=== PATIENT | male | born 1960 | race Caucasian/White ===

== ENCOUNTER 2017-10-12 09:07 | Outpatient (RCR) | payer BC, SELFPAY ==
[2017-10-12] MEDS: Normal Saline Flush 10 ML SYR IVP (09:05)
[2017-10-12 09:33] LABS: Abs Immature Grans 0.18 k/cumm (0.0-0.09); HCT 34.8 % (40.0-50.0); HGB 10.9 g/dL (13.5-17.5); Mean Corp. HGB Concentration 31.3 g/dL (32.0-36.0); Mean Corpuscular Hemoglobin 25.5 pg (27.0-33.0); Mean Corpuscular Volume 81.3 fL (80-95); Mean Platelet Volume 9.5 fL (8.0-11.0); Platelet Count 373 x1000/uL (130-400); RBC 4.28 m/cumm (4.50-6.00); RBC Distribution Width 15.9 % (11.8-14.1); White Blood Cell Count 6.56 k/cumm (4.4-10.8)
[2017-10-12 09:50] LABS: Absolute Eosinophil Count 0.26 k/cumm (0.0-0.7); Absolute Lymphocyte Count 1.25 k/cumm (1.2-3.4); Absolute Monocyte Count 0.59 k/cumm (0.11-0.7)
[2017-10-12 09:51] LABS: Basophilic Stippling Present; Diff Comment Manual Differential; Polychromasia Present; Schistocytes 1+
[2017-10-12 09:52] LABS: Poikilocytes 1+
[2017-10-12 09:59] LABS: ALT 33 U/L (12-78); AST 19 U/L (15-37); Albumin 3.6 g/dL (3.4-5.0); Alkaline Phosphatase 146 U/L (46-116); Anion Gap 5.1 mmol/L (3-11); BUN 15 mg/dL (7-18); Bilirubin, Total 0.2 mg/dL (0.2-1.0); CO2 28.9 mmol/L (21.0-32.0); CREATININE 0.64 mg/dL (0.70-1.30); Chloride 102 mmol/L (98-107); Glucose 98 mg/dL (70-100); Magnesium 1.8 mg/dL (1.8-2.4); Potassium 3.8 mmol/L (3.5-5.1); Sodium 136 mmol/L (136-145); Total Protein 7.2 g/dL (6.4-8.2)
== END 2017-10-22 ==
LOC: INF 09:07
PROVIDERS: PCP Nurse Practitioner Family; Visit Provider Internal Medicine Medical Oncology
DX: C79.10 Secondary malignant neoplasm of unspecified urinary organs (principal); Z45.2 Encounter for adjustment and management of vascular access device
CPT/HCPCS: 36591; 80053; 83735; 85025

== ENCOUNTER 2017-11-09 01:15 | Outpatient (RCR) | payer BC, SELFPAY ==
[2017-10-26] MEDS: Normal Saline Flush 10 ML SYR IVP (08:40)
[2017-10-26 09:19] LABS: HGB 11.1 g/dL (13.5-17.5); Mean Corp. HGB Concentration 31.7 g/dL (32.0-36.0); Mean Corpuscular Hemoglobin 26.3 pg (27.0-33.0); Mean Corpuscular Volume 82.9 fL (80-95); RBC 4.22 m/cumm (4.50-6.00); RBC Distribution Width 18.5 % (11.8-14.1); White Blood Cell Count 7.94 k/cumm (4.4-10.8)
[2017-10-26 09:25] LABS: ALT 29 U/L (12-78); AST 13 U/L (15-37); Albumin 3.7 g/dL (3.4-5.0); Alkaline Phosphatase 164 U/L (46-116); Anion Gap 3.1 mmol/L (3-11); BUN 22 mg/dL (7-18); Bilirubin, Total 0.2 mg/dL (0.2-1.0); CO2 30.9 mmol/L (21.0-32.0); CREATININE 0.74 mg/dL (0.70-1.30); Calcium 8.8 mg/dL (8.5-10.1); Chloride 104 mmol/L (98-107); Glucose 105 mg/dL (70-100); Magnesium 1.8 mg/dL (1.8-2.4); Potassium 3.9 mmol/L (3.5-5.1); Sodium 138 mmol/L (136-145); Total Protein 7.1 g/dL (6.4-8.2)
[2017-10-26 09:39] LABS: Absolute Lymphocyte Count 1.67 k/cumm (1.2-3.4); Absolute Monocyte Count 0.64 k/cumm (0.11-0.7); Absolute Neutrophil Count 5.48 k/cumm (1.2-6.7); Diff Comment Manual Differential
[2017-10-26 09:40] LABS: Anisocytosis 2+; Ovalocytes 2+; Poikilocytes 1+; Polychromasia Present
[2017-10-26 09:41] LABS: Platelet Count 289 x1000/uL (130-400)
[2017-11-09] MEDS: Normal Saline Flush 10 ML SYR IVP (10:05)
[2017-11-09 10:21] LABS: Abs Immature Grans 0.13 k/cumm (0.0-0.09); Absolute Basophil Count 0.04 k/cumm (0.0-0.2); Absolute Eosinophil Count 0.15 k/cumm (0.0-0.7); Absolute Lymphocyte Count 1.53 k/cumm (1.2-3.4); Absolute Monocyte Count 0.49 k/cumm (0.11-0.7); Absolute Neutrophil Count 5.98 k/cumm (1.2-6.7); Basophils % 0.5; Eosinophils % 1.8; HCT 34.2 % (40.0-50.0); HGB 10.9 g/dL (13.5-17.5); Immature Grans % 1.6; Lymphocytes % 18.4; Mean Corp. HGB Concentration 31.9 g/dL (32.0-36.0); Mean Corpuscular Hemoglobin 26.7 pg (27.0-33.0); Mean Corpuscular Volume 83.6 fL (80-95); Mean Platelet Volume 9.4 fL (8.0-11.0); Monocytes % 5.9; Neutrophils % 71.8; Platelet Count 306 x1000/uL (130-400); RBC 4.09 m/cumm (4.50-6.00); RBC Distribution Width 20.8 % (11.8-14.1); White Blood Cell Count 8.32 k/cumm (4.4-10.8)
[2017-11-09 10:47] LABS: Anisocytosis 2+; Diff Comment RBC Morph Reviewed; Poikilocytes 1+; Polychromasia Present
[2017-11-09 11:13] LABS: ALT 37 U/L (12-78); AST 17 U/L (15-37); Albumin 3.7 g/dL (3.4-5.0); Alkaline Phosphatase 155 U/L (46-116); Anion Gap 8.2 mmol/L (3-11); BUN 21 mg/dL (7-18); Bilirubin, Total 0.1 mg/dL (0.2-1.0); CO2 27.8 mmol/L (21.0-32.0); CREATININE 0.76 mg/dL (0.70-1.30); Calcium 8.5 mg/dL (8.5-10.1); Chloride 103 mmol/L (98-107); Glucose 149 mg/dL (70-100); Magnesium 1.8 mg/dL (1.8-2.4); Potassium 3.9 mmol/L (3.5-5.1); Sodium 139 mmol/L (136-145); Total Protein 6.9 g/dL (6.4-8.2)
== END 2017-11-21 23:59 | disposition home or self-care (01) ==
LOC: INF 01:15
PROVIDERS: Internal Medicine Medical Oncology; PCP Nurse Practitioner Family; Visit Provider Internal Medicine
DX: C79.10 Secondary malignant neoplasm of unspecified urinary organs (principal); Z45.2 Encounter for adjustment and management of vascular access device
CPT/HCPCS: 36591; 80053; 83735; 85025

== ENCOUNTER 2018-05-23 09:08 | Outpatient (CLI) | payer BC, SELFPAY ==
[2018-05-23 09:38] LABS: Hemoglobin A1C 5.5 % (4.5-6.2)
[2018-05-23 09:48] LABS: Abs Immature Grans 0.01 k/cumm (0.0-0.09); Absolute Basophil Count 0.02 k/cumm (0.0-0.2); Absolute Lymphocyte Count 1.17 k/cumm (1.2-3.4); Absolute Monocyte Count 0.35 k/cumm (0.11-0.7); Absolute Neutrophil Count 3.34 k/cumm (1.2-6.7); Basophils % 0.4; Eosinophils % 3.9; HCT 42.1 % (40.0-50.0); HGB 14.3 g/dL (13.5-17.5); Immature Grans % 0.2; Mean Corpuscular Hemoglobin 30.7 pg (27.0-33.0); Mean Corpuscular Volume 90.3 fL (80-95); Mean Platelet Volume 10.4 fL (8.0-11.0); Monocytes % 6.9; Neutrophils % 65.6; Platelet Count 263 x1000/uL (130-400); RBC 4.66 m/cumm (4.50-6.00); RBC Distribution Width 13.8 % (11.8-14.1); White Blood Cell Count 5.09 k/cumm (4.4-10.8)
[2018-05-23 10:39] LABS: ALT 37 U/L (12-78); AST 20 U/L (15-37); Albumin 4.3 g/dL (3.4-5.0); Alkaline Phosphatase 95 U/L (46-116); Anion Gap 8.2 mmol/L (3-11); BUN 22 mg/dL (7-18); Bilirubin, Total 0.8 mg/dL (0.2-1.0); CO2 30.8 mmol/L (21.0-32.0); CREATININE 0.77 mg/dL (0.70-1.30); Calcium 9.4 mg/dL (8.5-10.1); Chloride 101 mmol/L (98-107); Cholesterol 205 mg/dL (50-200); Glucose 104 mg/dL (70-100); HDL Cholesterol 64 mg/dL (40-60); LDL CHOLESTEROL 124 mg/dL (<100); Potassium 4.2 mmol/L (3.5-5.1); Sodium 140 mmol/L (136-145); Total Protein 7.6 g/dL (6.4-8.2); Triglyceride 99 mg/dL (30-150)
== END 2018-05-23 09:28 ==
PROVIDERS: PCP Nurse Practitioner Family; Visit Provider Internal Medicine
DX: C79.10 Secondary malignant neoplasm of unspecified urinary organs (principal)
CPT/HCPCS: 36415; 80053; 80061; 83721; 83036; 85025

== ENCOUNTER 2018-05-30 00:59 | Outpatient (CLI) | payer BC, SELFPAY ==
[2018-05-30] MEDS: Breeza Beverage 473 ML BTL PO ×2 (07:02→07:04)
[2018-05-30] MEDS: Omnipaque 350 MG/ML 50 ML BTL PO (07:03)
--- NOTE | 2018-05-30 08:35 | DI.CT_ITS ---
SYMPTOM/DIAGNOSIS: NEW LOW BACK PAIN, RESTAGING EXAM, H/O METASTATIC UROTHELIAL CA CHEST/ABDOMEN AND PELVIC CT: Comparison CT scan is 05/04/17. ABDOMEN AND PELVIS: The liver is normal in size. There is a stable, 0.6 cm. hypodense, non enhancing lesion in the left lobe of the liver. No suspicious hepatic masses are seen. The portal, superior mesenteric and splenic veins are patent. The gallbladder is negative. There is no biliary ductal dilatation. The pancreas is unremarkable. There are granulomas again seen in the spleen which is otherwise unremarkable. The adrenal glands are stable. The kidneys show normal and symmetric enhancement. No suspicious solid renal mass or obstruction is identified. The patient is status post cystectomy. There is an ileal conduit in the right abdomen which is unremarkable. There is atherosclerosis of the abdominal aorta but no aneurysmal dilatation is seen. No significant abdominal or pelvic adenopathy, ascites or pneumoperitoneum is present. There is diverticulosis of the colon but no evidence of acute diverticulitis. No evidence of bowel obstruction or a bowel inflammatory process is seen. There is a normal appendix present. No evidence of recurrent disease is seen in the surgical bed. Degenerative changes are seen in the spine. No aggressive osseous lesions are identified. IMPRESSION: 1. No evidence of local recurrence at the urinary bladder surgical bed. 2. Stable hepatic hypodensity. CHEST: The thoracic aorta is of normal caliber. Heart size is within normal limits. No significant pericardial effusion is seen. No significant thoracic adenopathy is present. No pleural effusion or pneumothorax is identified. The lungs are clear. The tracheobronchial tree is unremarkable. Degenerative changes are seen in the spine. No aggressive osseous lesions are present. IMPRESSION: No evidence of thoracic metastatic disease.
[2018-05-30] MEDS: Omnipaque 350 MG/ML 100 ML BTL IJ (08:36)
== END 2018-05-30 01:19 ==
PROVIDERS: PCP Nurse Practitioner Family; Visit Provider Internal Medicine
DX: M54.5 Low back pain (principal); C79.10 Secondary malignant neoplasm of unspecified urinary organs; K76.9 Liver disease, unspecified
CPT/HCPCS: 74177; 71260; J3490; Q9967

== ENCOUNTER 2018-06-03 00:25 | Outpatient (CLI) | payer BC, SELFPAY ==
[2018-06-03] MEDS: Gadoterate meglumine 20 ML VIAL IVP (09:55)
--- NOTE | 2018-06-03 10:09 | DI.MRI_ITS ---
SYMPTOM/DIAGNOSIS: NEW LOW BACK PAIN, RESTAGING EXAM, H/O METS, UROTHELIAL CARCINOMA LUMBOSACRAL SPINE MRI: MRI examination of the lumbosacral spine was performed according to the usual protocol with additional pre and post contrast fat sat T 1 weighted axial and sagittal images. No significant bony signal abnormality is seen. An incidental small hemangioma or fatty rest is noted in the T 11 vertebral body. No enhancing lesion identified in the spine. Intervertebral discs appear intact throughout. No central canal spinal canal or neural foraminal stenosis. Conus medullaris appears intact. CONCLUSION: Negative lumbosacral spine MRI including post contrast examination.
== END 2018-06-03 00:45 ==
PROVIDERS: PCP Nurse Practitioner Family; Visit Provider Internal Medicine
DX: M54.5 Low back pain (principal); C67.9 Malignant neoplasm of bladder, unspecified; Z12.89 Encounter for screening for malignant neoplasm of other sites
CPT/HCPCS: 72158

== ENCOUNTER 2018-07-29 10:17 | Outpatient (REF) | payer BC, SELFPAY ==
[2018-07-29 11:51] LABS: Bilirubin Negative (Negative); Blood Moderate (Negative); Clarity Cloudy; Glucose Negative (Negative); Ketones Negative (Negative); Leukocyte Esterase Trace (Negative); Nitrite Positive (Negative); Specific Gravity 1.025 (1.005-1.025); Urobilinogen 0.2 EU/dL (Up TO 0.2)
[2018-07-29 12:21] LABS: Bacteria Moderate HPF (Negative); C & S Indicated? C&S Done As Ordered; Crystals Few Triple Phos HPF (Negative); Epithelial Cells Negative HPF (Negative); Mucus Moderate (Negative); WBC >50 HPF (0-5)
== END 2018-07-29 10:37 ==
LOC: LBN 10:17
PROVIDERS: PCP Nurse Practitioner Family; Visit Provider Nurse Practitioner Family
DX: M54.9 Dorsalgia, unspecified (principal)
CPT/HCPCS: 87077; 81003; 81015; 87086; 87186

== ENCOUNTER 2018-09-08 12:21 | Inpatient (IN) | payer BC, SELFPAY ==
[2018-09-08] VITALS (7 sets, daily range): BP systolic 107–143; BP diastolic 67–92; PULSE 79–93; RESP 17–18; TEMP 36.6–38.1; O2SAT 95–97
[2018-09-08] MEDS: fentaNYL 100 MCG/2 ML VIAL 50 MCG IVP ×3 (13:05→22:42)
[2018-09-08] MEDS: Normal Saline Flush 10 ML SYR ×2 (13:07→15:54)
--- NOTE | 2018-09-08 15:49 | HPE_ITS ---
Date of service: 09/08/18 Time of Service: 15:50 Assessment and Plan (1) Metastatic urothelial carcinoma: Current visit: No Status: Inactive Admitted for pain management due to intractable pain at home. Currently with fentanyl patch 200 mcg, IV fentanyl 50 mcg every 2 hours. Pain appears to be under better control at this time. Increase fentanyl patch by 50 mcg increments [id number] until pain is controlled. Palliative care has been consulted to assist with pain control. He is a palliative care patient. Consider adding dexamethasone if he reaches a dose of Fentanyl 400 mcg TD without pain control. Also add scheduled toradol, renal function is normal. Monitor BMP. (2) Cancer related pain: Current visit: No Status: Chronic As above. (3) Nausea: Current visit: No Status: Acute Nausea and vomiting likely related to uncontrolled pain. Denies nausea at present. IV Zofran as needed. (4) Constipation due to opioid therapy: Current visit: No Status: Chronic Continue home bowel regimen. PRN options available. Monitor and adjust as needed. (5) Palliative care patient: Current visit: No Status: Chronic Dr. Lobo has been consulted, she plans to see the patient this evening to assist with pain control. (6) Essential hypertension: Current visit: No Status: Chronic Continue to monitor blood pressure in the setting of increasing pain medication, home dose of losartan ordered, BMP pending. (7) Hyponatremia: Current visit: Yes Status: Acute His sodium is low at 130, chloride is also low. Initiate IV fluids with NS. Reassess sodium in the morning. (8) DVT prophylaxis: Current visit: Yes Status: Acute Subcutaneous Lovenox. Assess renal function. (9) Discharge planning issues: Current visit: Yes Status: Acute He states that he is a DNR/DNI. He is hoping to get his pain under control so he can resume radiation and immunotherapy. This case was discussed with Dr. Rodríguez who is in agreement. History of Present Illness Chief Complaint: Intractable pain Narrative: Shar Randall is a very pleasant 57-year-old man with a past medical history significant for metastatic urot helial carcinoma status post cystoprostatectomy in 07/2017, currently with mets to his spine. He is a former smoker, he also has a history of hypertension and hyperlipidemia who presents as [facility] floor today at the request of his palliative care provider due to intractable pain. He has had increasing low back and abdominal pain as well as several episodes of nausea and vomiting. He was recently started on a fentanyl patch, starting at 12 mcg, which has been increased to 200 mcg. He remained in severe pain. At this time, he is looking forward to continuing radiation and beginning immunotherapy. He is admitted to the [facility] for pain control. Palliative care has been consulted, he will be seen by Dr. Lobo this afternoon to assist with pain management. Oncology recommends adding dexamethasone, his daughter has concerns about it affecting his immunotherapy initiation, this will be discussed with Dr. Lobo. At the time of this visit, he had received Fentanyl 50 mcg IV with good effect, his pain improved from an 8-9 to a 3/10. The pain is in his low back and around his abdomen. He denies nausea, he was able to eat a small amount of food, his w bonny states he has not eaten for the last couple of days. He reports feeling very tired, he has not slept well at home due to pain. He has been sleeping in his recliner. He denies chest pain/pressure, palpitations, shortness of breath, coughing or wheezing. He endorses constipation, it has been 2 days since his last bowel movement, he does take a bowel regimen at home. He offers no other complaints. He is relieved that his pain is under better control. His , Latrice, and daughter, Iman, are present. We discussed CODE STATUS and he would like to be a DNR/DNI. Review of Systems Review of Systems All systems reviewed & are unremarkable except as noted in HPI and below PFSH Medical History Cancer related pain (Chronic) Constipation due to opioid therapy (Chronic) Essential hypertension (Chronic) Hyperlipidemia (Chronic) Metastatic urothelial carcinoma (Inactive ~04/2017) Nausea (Acute) Palliative care patient (Chronic) Surgical History History of bladder surgery (Inactive 05/11/17) S/P ORIF (open reduction internal fixation) fracture (Inactive ~1972) S/P radical cystoprostatectomy (Inactive 08/03/17) S/P vasectomy (Inactive ~1990) Family History Mother Essential hypertension Father Essential hypertension Type 2 diabetes mellitus Prostate cancer Brother Essential hypertension Alcohol abuse Heart disease Brother Substance abuse Essential hypertension Depression Son No problems noted. Daughter No problems noted. Daughter No problems noted. Maternal Grandfather Metastatic bone cancer Maternal Grandmother Alcohol abuse Paternal Grandfather Bladder cancer Paternal Grandmother Asthma Social History Smoking/Tobacco Use Status: Former Tobacco Use Tobacco: How many years used: 28 Alcohol Intake: current Alcohol Intake frequency: 0-2 drinks per day Drug use: Never Substance use type: former substance user Caregiver/Support person: No Household members: spouse Housing: house Number of Children: 3 number of grandchildren: 6 Pets and animals: Yes Pets and animals: dog(s) Sexually active: No (not since cancer surgery) Do you think of yourself as: straight/heterosexual Current gender identity: male What is your relationship status?: How often do you talk on the phone with friends or family?: three or more times per week How often do you get together with friends or relatives?: three or more times per week How often do you attend quaker or jainism services?: 1-3 times per year Do you belong to any clubs or organized social groups?: yes Panel score (0-1 are the most socially isolated patients): 3 What type of physical activity do you participate in: walking and other Duration: > 90 minutes/day Frequency: daily Mcai/Christian: Caodaism Special maci needs: No Seatbelt use: always Drive intox or ride w/intox furniture delivery driver: No Fire extinguisher in home: Yes Do you feel safe at home: Yes Do you feel safe in your relationship?: Yes Additional Social history: self-employed; applying for disability; has life insurance to cover his when he dies; worried about making enough money to support them up until his ; loving, caring, connected family celebrating his 35 anniversary this summer ( in April, but republican this summer) Meds Home Medications Medication Instructions Recorded Confirmed Type multivitamin [Daily Multi-Vitamin] 1 ea PO DAILY tab-cap 04/10/14 09/08/18 History Shower Stool Dme 1 #1 unit 05/17/17 07/22/18 Clinic losartan 50 mg tablet 50 mg PO DAILY tab-cap 09/02/18 09/08/18 History ondansetron 4 mg disintegrating 4 mg PO TID-QID PRN #30 tab 09/02/18 09/08/18 Rx tablet polyethylene glycol 3350 17 17 gm PO BID #510 gm 09/02/18 09/08/18 Rx gram/dose oral powder sennosides 8.6 mg tablet 8.6 mg PO BID PRN #90 tab 09/02/18 09/08/18 Rx fentanyl 100 mcg/hr transdermal 2 patch TD Q72H #10 each MDD 300 09/05/18 09/08/18 Rx patch mcg fentanyl 25 mcg/hr transdermal 1 patch TD Q72H #10 each MDD 300 09/05/18 09/05/18 Rx patch mcg dexamethasone mg 09/08/18 History oxycodone 5 mg tablet 5 mg PO Q4H PRN PRN #30 tab MDD 20 09/08/18 09/08/18 Rx mg Allergies Allergy/AdvReac Type Severity Reaction Status Date / Time lisinopril AdvReac Unknown COUGH Unverified 07/22/18 10:13 Exam Narrative Exam Narrative: General:57 year old man, laying in bed, with head of bed elevated, eyes closed, appears comfortable. In NAD. Answers questions briefly. and daughter present. HEENT: Normocephalic, atraumatic, occasionally opens eyes, mucous membranes moist. Neck: Supple, no JVD. Cardiovascular: Heart has regular rate and rhythm, no murmur appreciated. Respiratory: Respirations even and unlabored, lung sounds clear to auscultation bilaterally on lateral and anterior exam. GI: Normoactive bowel sounds x4 quadrants, surgical scar below umbilicus. Ileal conduit collecting clear yellow urine. Extremities: Well-perfused, trace edema to bilateral lower extremities, nonpitting, pedal pulses palpable. Back: Not moved to examine back due to pain. Results Labs : 09/09/18 07:35 09/09/18 07:35 Last Vital Signs Temp 38.1 C H 09/08/18 15:47 Pulse 89 09/08/18 15:47 Resp 17 09/08/18 15:47 BP 107/71 09/08/18 15:47 Pulse Ox 96 09/08/18 15:47
[2018-09-08] MEDS: Acetaminophen 325 MG TAB PO (15:52)
[2018-09-08 16:19] LABS: Abs Immature Grans 0.03 k/cumm (0.0-0.09); Absolute Lymphocyte Count 0.85 k/cumm (1.2-3.4); Absolute Monocyte Count 1.17 k/cumm (0.11-0.7); Basophils % 0.2; Eosinophils % 0.2; HCT 35.2 % (40.0-50.0); HGB 11.4 g/dL (13.5-17.5); Immature Grans % 0.2; Lymphocytes % 6.7; Mean Corp. HGB Concentration 32.4 g/dL (32.0-36.0); Mean Corpuscular Hemoglobin 29.9 pg (27.0-33.0); Mean Corpuscular Volume 92.4 fL (80-95); Mean Platelet Volume 9.4 fL (8.0-11.0); Monocytes % 9.2; Neutrophils % 83.5; Platelet Count 381 x1000/uL (130-400); RBC 3.81 m/cumm (4.50-6.00); RBC Distribution Width 12.9 % (11.8-14.1)
[2018-09-08 16:41] LABS: ALT 33 U/L (12-78); AST 13 U/L (15-37); Albumin 3.3 g/dL (3.4-5.0); Alkaline Phosphatase 116 U/L (46-116); Anion Gap 9.6 mmol/L (3-11); BUN 24 mg/dL (7-18); Bilirubin, Total 0.7 mg/dL (0.2-1.0); CO2 27.4 mmol/L (21.0-32.0); CREATININE 0.77 mg/dL (0.70-1.30); Calcium 9.9 mg/dL (8.5-10.1); Chloride 93 mmol/L (98-107); Glucose 104 mg/dL (70-100); Magnesium 2.1 mg/dL (1.8-2.4); Potassium 4.8 mmol/L (3.5-5.1); Sodium 130 mmol/L (136-145); Total Protein 7.9 g/dL (6.4-8.2)
[2018-09-08 16:45] LABS: Absolute Basophil Count 0.03 k/cumm (0.0-0.2); Absolute Eosinophil Count 0.03 k/cumm (0.0-0.7)
[2018-09-08] MEDS: fentaNYL 50 MCG PATCH TD (17:38)
[2018-09-08] MEDS: Enoxaparin 40 MG/0.4 ML SYR SC (17:39)
[2018-09-08] MEDS: Normal Saline 1,000 ML 100 ML IV (17:40)
[2018-09-08] MEDS: Lidocaine 5% Patch 1 PATCH TP (18:38)
[2018-09-08] MEDS: Ketorolac 30 MG/ML VIAL IVP ×2 (18:39→23:28)
[2018-09-08] MEDS: Senna TAB 1 TAB PO (20:37)
[2018-09-08] MEDS: Polyethylene Glycol 3350 17 GM PACKET PO (20:37)
[2018-09-08] MEDS: Normal Saline Flush 10 ML SYR IVP (23:27)
[2018-09-09] MEDS: Normal Saline 1,000 ML 100 ML IV (03:02)
[2018-09-09] MEDS: LIDOCAINE Patch Removal 1 EACH TP (06:13)
[2018-09-09] MEDS: Normal Saline Flush 10 ML SYR IVP ×3 (06:20→12:36)
[2018-09-09] MEDS: Ketorolac 30 MG/ML VIAL IVP ×2 (06:21→12:37)
[2018-09-09 07:35] VITALS: BP 115/71; PULSE 83; RESP 16; TEMP 36.9; O2SAT 93
[2018-09-09] MEDS: Acetaminophen 325 MG TAB PO (07:43)
[2018-09-09] MEDS: Multivitamin TAB 1 TAB PO (07:44)
[2018-09-09] MEDS: Senna TAB 1 TAB PO (07:44)
[2018-09-09] MEDS: Losartan 50 MG TAB PO (07:44)
[2018-09-09] MEDS: Polyethylene Glycol 3350 17 GM PACKET PO (07:44)
[2018-09-09 07:50] LABS: Abs Immature Grans 0.03 k/cumm (0.0-0.09); Absolute Basophil Count 0.01 k/cumm (0.0-0.2); Absolute Eosinophil Count 0.02 k/cumm (0.0-0.7); Absolute Lymphocyte Count 0.32 k/cumm (1.2-3.4); Absolute Monocyte Count 1.18 k/cumm (0.11-0.7); Absolute Neutrophil Count 10.74 k/cumm (1.2-6.7); Basophils % 0.1; Eosinophils % 0.2; HCT 31.6 % (40.0-50.0); Immature Grans % 0.2; Lymphocytes % 2.6; Mean Corp. HGB Concentration 31.6 g/dL (32.0-36.0); Mean Corpuscular Hemoglobin 29.2 pg (27.0-33.0); Mean Corpuscular Volume 92.4 fL (80-95); Mean Platelet Volume 9.3 fL (8.0-11.0); Monocytes % 9.6; Neutrophils % 87.3; Platelet Count 392 x1000/uL (130-400); RBC 3.42 m/cumm (4.50-6.00); RBC Distribution Width 12.9 % (11.8-14.1)
[2018-09-09 08:03] LABS: Anion Gap 8.9 mmol/L (3-11); BUN 32 mg/dL (7-18); CO2 29.1 mmol/L (21.0-32.0); CREATININE 0.78 mg/dL (0.70-1.30); Calcium 9.9 mg/dL (8.5-10.1); Chloride 96 mmol/L (98-107); Glucose 117 mg/dL (70-100); Magnesium 2.5 mg/dL (1.8-2.4); Potassium 5.1 mmol/L (3.5-5.1); Sodium 134 mmol/L (136-145)
--- NOTE | 2018-09-09 11:44 | W.PM.DS.N ---
Date of service: 09/09/18 Time of Service: 11:44 DS: Diagnosis Discharge Diagnosis (1) Metastatic urothelial carcinoma: Status: Inactive (2) Cancer related pain: Status: Chronic (3) Nausea: Status: Acute (4) Constipation due to opioid therapy: Status: Chronic (5) Palliative care patient: Status: Chronic (6) Essential hypertension: Status: Chronic (7) Hyponatremia: Status: Acute Discharge Plan Disposition Patient Disposition: HOME Condition: Improving Discharge Details Reason For Visit: METASTATIC UROTHELIAL CARCINOMA, UNCONTROLLED PAIN Admit Date/Time: 09/08/18 12:21 Admit Provider: Lyly Rodríguez Attending Provider: Lyly Rodríguez Hospital Course Hospital Course: Shra Randall is a very pleasant 57-year-old man with a past medical history significant for metastatic urothelial carcinoma status post cystoprostatectomy in 07/2017, currently with metastasis to his spine. He is a former smoker, he also has a history of hypertension and hyperlipidemia who presented yesterday as a direct admission to the [facility] at the request of his palliative care provider, Dr. Lobo, due to intractable pain. He had several days of increasing low back and abdominal pain as well as episodes of nausea and vomiting prior to his presentation. He was recently started on a fentanyl patch. He was initiated at 12 mcg q72 hours and increased to 200 mcg without relieving his pain. He reported his pain at an 8-9/10 upon admission to the floor. He received IV fentanyl which reduced his pain to 3/10. Palliative care was consulted for assistance with pain management. Dr. Lobo saw him and made recommendations including increasing his fentanyl patch to 250 mcg q72 hours. She recommended increasing the patch by 50 mcg increments every 12 hours until his pain was tolerable. She reported that oncology had recommended dexamethasone 8mg PO daily x5 days, however, his daughter Iman, also an [facility] pharmacist, did some research and was concerned that it could potentially affect his immunotherapy and asked that we reserve the dexamethasone and use it only if other measures do not relieve his pain. Her primary goal was for his pain to be well managed. His fentanyl patch was increased to 250 mcg and he was given scheduled Toradol q6h. By the following morning his pain was 3-4/10 and tolerable. He was able to get out of bed and walk to the bathroom. His reported that he had not been eating well for at least 2 days prior to his admission. With his pain and nausea under control, he was able to eat and drink. He reported sleeping well. Dr. Lobo came in to see Mr. Randall on the morning of his discharge. He was eager to make is afternoon radiation appointment. A plan was developed for pain management after discharge home. He will be discharged with 250 mcg fentanyl patch, he is advised that he can increase his patch by 50 mcg increments q12 hours if his pain is not well controlled. He will have a new prescription for dilaudid for breakthrough pain. He will be advised to take scheduled Ibuprofen. He was started on lidoderm patch, this will be continued at discharge. He should continue Zofran for nausea. He will have a new prescription for omeprazole for GI protection. Of note, he has had constipation. He had a large bowel movement while he was hospitalized. He is advised to continue to maintain a bowel regimen at home in the setting of taking opiates for pain. He also received IV normal saline overnight due to hyponatremia, likely in the setting of poor PO intake. His sodium improved to 134 at the time of his discharge. His creatinine remained stable at 0.78. His ileocondiut continues to put out clear yellow urine. He has an outstanding, loving family that will support him and care for him at home. He is discharged home today. He will go from the hospital to [facility] for radiation treatment. He will follow up with oncology as scheduled. He will follow up with Dr. Lobo next week as scheduled. Home Meds and New Rx's Prescriptions: New lidocaine [Lidoderm] 5 % Adhesive Patch,Medicated 1 patch topical Q24H Qty: 15 RF: 0 lorazepam 0.5 mg Tablet 0.5 mg PO Q4H PRN PRNQty: 18 RF: 0 magnesium hydroxide [Milk of Magnesia] 400 mg/5 mL Suspension 30 ml PO HS Qty: 0 RF: 0 ondansetron HCl 4 mg tablet 4 mg PO Q8H PRN (Reason: nausea and vomiting) Qty: 20 RF: 0 ibuprofen 800 mg tablet 800 mg PO Q8H Qty: 30 RF: 0 fentanyl 50 mcg/hr patch 72 hour 1 patch TD Q72H Qty: 5 RF: 0 hydromorphone 2 mg tablet 2 mg PO Q4H PRN (Reason: pain) Qty: 18 RF: 0 omeprazole 40 mg capsule,delayed release(DR/EC) 40 mg PO DAILY Qty: 30 RF: 0 Continued losartan 50 mg tablet 50 mg PO DAILY RF: 0 sennosides [senna] 8.6 mg tablet 8.6 mg PO BID PRN (Reason: constipation) Qty: 90 RF: 0 polyethylene glycol 3350 [Miralax] 17 gram/dose powder 17 gm PO BID Qty: 510 RF: 1 ondansetron 4 mg tablet,disintegrating 4 mg PO TID-QID PRN (Reason: nausea and vomiting) Qty: 30 RF: 3 fentanyl 100 mcg/hr patch 72 hour 2 patch TD Q72H MDD 300 mcg Qty: 10 RF: 0 fentanyl 25 mcg/hr patch 72 hour 1 patch TD Q72H MDD 300 mcg Qty: 10 RF: 0 multivitamin [Daily Multi-Vitamin] 1 EACH tablet 1 ea PO DAILY RF: 0 shower stool DME 1 Qty: 1 RF: 0 Discontinued oxycodone 5 mg tablet 5 mg PO Q4H PRN MDD 20 mg PRN (Reason: pain) Qty: 30 RF: 0 dexamethasone 1.5 mg (51 tabs) Tablets,Dose Pack RF: 0 Discharge Instructions Instructions: Bladder Cancer (DC) Additional Instructions: Your fentanyl patch dose is 200 mcg q72 hours. You may add a 50 mcg fentanyl patch every 12 hours as needed to achieve a tolerable pain level. Take ibuprofen every [address] lidoderm patch to your back. Dilaudid for breakthrough pain. Zofran and/or ativan for nausea/vomting. I also sent a prescription for Omeprazole to protect your stomach (ibuprofen can be hard on your stomach). Take the omeprazole every day. Make sure you take bowel medications scheduled, do not wait until you are constipated. Increase your regimen if you do not go for a day. Being constipated will make your pain worse. TAKE CARE!! It was a pleasure to work with you and your family! Stand Alone Forms: Nursing Discharge Form Referrals: Aarti Lobo MD [ [facility] STAFF PHYSICIAN] - Activity:: Activity as Tolerated Equipment/Supplies:: No Equipment Needed Diet:: As Tolerated Discharge Orders Discharge Orders: Discharge Order (Routine); Ordered 09/09/18 Ordered By: Lynsey Gutierrez Exam Narrative Exam Narrative: General:57 year old man, laying in bed, with head of bed elevated, appears more comfortable and alert today. In NAD. Answers questions appropriately. and daughter present. HEENT: Normocephalic, atraumatic, pupils small but equal and round, mucous membranes moist. Neck: Supple, no JVD. Cardiovascular: Heart has regular rate and rhythm, no murmur appreciated. Respiratory: Respirations even and unlabored, lung sounds mostly clear to auscultation bilaterally. Fine rales to left base- IS ordered. GI: Normoactive bowel sounds x4 quadrants, surgical scar below umbilicus. Ileal conduit collecting clear yellow urine. Extremities: Well-perfused, trace edema to bilateral lower extremities, nonpitting, pedal pulses palpable. DS: Data Vitals/I&O Vitals and I&O: Vital Signs Temperature 36.9 C 09/09/18 07:35 Temperature Source Tympanic 09/09/18 07:35 Pulse 83 09/09/18 07:35 Pulse Rhythm Regular 09/09/18 07:35 Respiratory Rate 16 09/09/18 07:35 Respiratory Effort Non-Labored 09/09/18 07:35 Respiratory Depth Normal 09/09/18 07:35 Respiratory Pattern Normal 09/09/18 07:35 Blood Pressure 115/71 09/09/18 07:35 Pulse Oximetry 93 L 09/09/18 07:35 Oxygen Delivery Method Room Air 09/09/18 07:35 Oxygen Flow Rate 0 09/09/18 07:35 Pain Level 3 09/09/18 09:30 Intake & Output 09/08/18 09/08/18 09/09/18 11:59 23:59 11:59 Intake Total 320 / 320 1536.667 / 1536.667 Output Total 325 / 325 300 / 300 Balance -5 / -5 1236.667 / 1236.667 Weight 99.9 kg Intake: IV 936.667 / 936.667 Oral 300 / 300 600 / 600 Output: Urine 325 / 325 300 / 300 Other: Urine Color Light Mikki Light Mikki Urine Appearance Cloudy Cloudy Urine Odor Strong None Comment EMPTIED UROSTOMY OF 125CC CLOUDY MIKKI URINE WHICH HAS A STRONG ODOR. Stool Size Large Stool Characteristics Formed Voiding Methods Ileal Conduit (Right) Labs on day of discharge: Labs from last 24 hours 09/09/18 09/09/1809/08/19 07:35 07:35 16:15 WBC 12.30 H 12.70 H RBC 3.42 L 3.81 L Hgb 10.0 L 11.4 L Hct 31.6 L 35.2 L MCV 92.4 92.4 MCH 29.2 29.9 MCHC 31.6 L 32.4 RDW 12.9 12.9 Plt Count 392 381 MPV 9.3 9.4 Immature Gran % 0.2 0.2 Neutrophils % 87.3 83.5 Lymphocytes % 2.6 6.7 Monocytes % 9.6 9.2 Eosinophils % 0.2 0.2 Basophils % 0.1 0.2 Absolute Neutrophils 10.74 H 10.60 H Absolute Lymphocytes 0.32 L 0.85 L Absolute Monocytes 1.18 H 1.17 H Absolute Eosinophils 0.02 0.03 Absolute Basophils 0.01 0.03 Sodium 134 L Potassium 5.1 Chloride 96 L Carbon Dioxide 29.1 Anion Gap 8.9 BUN 32 H Creatinine 0.78 Estimated GFR/1.73 m2 >= 60.00 Glucose 117 H Calcium 9.9 Magnesium 2.5 H Total Bilirubin AST ALT Alkaline Phosphatase Total Protein Albumin 09/08/18 16:15 WBC RBC Hgb Hct MCV MCH MCHC RDW Plt Count MPV Immature Gran % Neutrophils % Lymphocytes % Monocytes % Eosinophils % Basophils % Absolute Neutrophils Absolute Lymphocytes Absolute Monocytes Absolute Eosinophils Absolute Basophils Sodium 130 L Potassium 4.8 Chloride 93 L Carbon Dioxide 27.4 Anion Gap 9.6 BUN 24 H Creatinine 0.77 Estimated GFR/1.73 m2 >= 60.00 Glucose 104 H Calcium 9.9 Magnesium 2.1 Total Bilirubin 0.7 AST 13 L ALT 33 Alkaline Phosphatase 116 Total Protein 7.9 Albumin 3.3 L PFSH Medical History Cancer related pain (Chronic) Constipation due to opioid therapy (Chronic) Essential hypertension (Chronic) Hyperlipidemia (Chronic) Metastatic urothelial carcinoma (Inactive ~04/2017) Nausea (Acute) Palliative care patient (Chronic) Surgical History History of bladder surgery (Inactive 05/11/17) S/P ORIF (open reduction internal fixation) fracture (Inactive ~1972) S/P radical cystoprostatectomy (Inactive 08/03/17) S/P vasectomy (Inactive ~1990) Family History Mother Essential hypertension Father Essential hypertension Type 2 diabetes mellitus Prostate cancer Brother Essential hypertension Alcohol abuse Heart disease Brother Substance abuse Essential hypertension Depression Son No problems noted. Daughter No problems noted. Daughter No problems noted. Maternal Grandfather Metastatic bone cancer Maternal Grandmother Alcohol abuse Paternal Grandfather Bladder cancer Paternal Grandmother Asthma Social History Smoking/Tobacco Use Status: Former Tobacco Use Tobacco: How many years used: 28 Alcohol Intake: current Alcohol Intake frequency: 0-2 drinks per day Drug use: Never Substance use type: former substance user Caregiver/Support person: No Household members: spouse Housing: house Number of Children: 3 number of grandchildren: 6 Pets and animals: Yes Pets and animals: dog(s) Sexually active: No (not since cancer surgery) Do you think of yourself as: straight/heterosexual Current gender identity: male What is your relationship status?: How often do you talk on the phone with friends or family?: three or more times per week How often do you get together with friends or relatives?: three or more times per week How often do you attend baptism or hoahaoism services?: 1-3 times per year Do you belong to any clubs or organized social groups?: yes Panel score (0-1 are the most socially isolated patients): 3 What type of physical activity do you participate in: walking and other Duration: > 90 minutes/day Frequency: daily Maci/Synagogue: Mormonism Special maci needs: No Seatbelt use: always Drive intox or ride w/intox log driver: No Fire extinguisher in home: Yes Do you feel safe at home: Yes Do you feel safe in your relationship?: Yes Additional Social history: self-employed; applying for disability; has life insurance to cover his when he dies; worried about making enough money to support them up until his ; loving, caring, connected family celebrating his 35th wedding anniversary this summer ( in April, but libertarian this summer)
[2018-09-09 11:48] VITALS: BP 114/70; PULSE 73; RESP 18; TEMP 36.6; O2SAT 99
--- NOTE | 2018-09-09 12:23 | W.PALLCONSUL ---
Date of service: 09/08/18 Time of Service: 16:01 History of Present Illness Chief Complaint: uncontrolled pain in setting of metastatic bladder cancer Narrative: I have seen Shar twice this week. [facility] him [facility], and yesterday at his home. Both times he was writhing in pain. We have been going up on his fentanyl patches rapidly. We have been maxmizing his po oxycodone for breakthrough pain as well as maximizing his anti-emetics and anxiolytics. Yesterday, we discussed admitting him for pain control, either to [facility] or to [facility]. He wanted to give it one more day at home. Nonetheless, his pain was still severe. He has developed more nausea and vomiting. He is not sleeping. Today I spoke to his family members several times and by the early afternoon, he agreed to be admitted to [facility]. Dr Rodríguez and Lynsey Gutierrez agreed to admit him as a direct admit. Consults Consult date: 09/08/18 Requesting physician: Lyly Rodríguez Assessment and Plan (1) Metastatic urothelial carcinoma: Current visit: No Status: Inactive recurrent aggressive getting palliative radiation trying to get immunotherapy started soon to see if this will help last week has been unbearable for Shar, who is usually very stoic [place] aware of his admission will try to d/c him tomorrow for him to be able to receive his radiation therapy will see how he is doing (2) Cancer related pain: Current visit: No Status: Chronic severe currently on 200 mcg fentanyl patch and prn IV fentanyl fentanyl is working when his dose is high enough will add another 50 mcg patch tonight AND if needed will add another one tomorrow I expect that Shar will end up in the 400-500 mcg patch range before he remains comfortable long-term at home will change his breakthrough pain medication from oxycodone to hydromorphone to see if this is any more effective (3) Nausea: Current visit: No Status: Acute scolpolamine patch might help keep ondansetron at 8 mg tid has been using lorazepam 0.5 mg q 4 hrs but not that effective should reduce with better pain control (4) Hyponatremia: Current visit: Yes Status: Acute causing pedal edema could be part of his malignancy not drinking a lot of fluid so unlikely due to dilution (5) Edema extremities: Current visit: Yes Status: Acute new not a good prognositic sign (6) Discharge planning issues: Current visit: Yes Status: Acute will aim to get him out in time to go to radiation therapy unable to send him down to [facility] as inpatient if pain still uncontrolled on 09/09, consider swinging him discussed with Care Management and Rosanne Wallace Rn Review of Systems Constitutional Reports body ache(s), Reports chills, Reports daytime sleepiness, Reports difficulty sleeping, Reports excessive sweating, Reports fatigue, Reports fever(s), Reports malaise, Reports poor appetite, Reports weakness and Reports weight loss Eyes Reports dry eyes, Reports itchy eyes and Reports requires corrective lenses ENT Reports dysphagia, Reports dizziness, Reports dry mouth and Reports disequilibrium Cardiovascular Reports lightheadedness, Reports palpitations and Reports dyspnea on exertion Respiratory Reports dyspnea on exertion Gastrointestinal Reports abdominal pain, Reports bloating, Reports constipation, Reports cramping, Reports dysphagia, Reports early satiety, Reports nausea and Reports vomiting Genitourinary Reports flank pain and Reports other (urine in ileal conduit bag looks concentrated) Musculoskeletal Reports back pain (severe like a knife at region of maximal tumor growth in RP LN), Reports myalgias, Reports atrophy, Reports limited range of motion (due to pain and nausea), Reports muscle cramps and Reports muscle weakness Neurologic Reports behavioral changes, Reports dizziness, Reports paresthesias, Reports disequilibrium and Reports weakness Psychiatric Reports abnormal sleep pattern (not sleeping much; pain keeping him awake), Reports anxiety, Reports behavioral changes, Reports change in appetite, Reports difficulty concentrating, Reports hopelessness and Reports anhedonia Endocrine Reports excessive sweating, Reports fatigue and Reports palpitations Hematologic/Lymphatic Reports easy bruising and Reports lymphadenopathy Allergic/Immunologic Reports itchy eyes [facility] Medical History Cancer related pain (Chronic) Constipation due to opioid therapy (Chronic) Essential hypertension (Chronic) Hyperlipidemia (Chronic) Metastatic urothelial carcinoma (Inactive ~04/2017) Nausea (Acute) Palliative care patient (Chronic) Surgical History History of bladder surgery (Inactive 05/11/17) S/P ORIF (open reduction internal fixation) fracture (Inactive ~1972) S/P radical cystoprostatectomy (Inactive 08/03/17) S/P vasectomy (Inactive ~1990) Family History Mother Essential hypertension Father Essential hypertension Type 2 diabetes mellitus Prostate cancer Brother Essential hypertension Alcohol abuse Heart disease Brother Substance abuse Essential hypertension Depression Son No problems noted. Daughter No problems noted. Daughter No problems noted. Maternal Grandfather Metastatic bone cancer Maternal Grandmother Alcohol abuse Paternal Grandfather Bladder cancer Paternal Grandmother Asthma Social History Smoking/Tobacco Use Status: Former Tobacco Use Tobacco: How many years used: 28 Alcohol Intake: current Alcohol Intake frequency: 0-2 drinks per day Drug use: Never Substance use type: former substance user Caregiver/Support person: No Household members: spouse Housing: house Number of Children: 3 number of grandchildren: 6 Pets and animals: Yes Pets and animals: dog(s) Sexually active: No (not since cancer surgery) Do you think of yourself as: straight/heterosexual Current gender identity: male What is your relationship status?: How often do you talk on the phone with friends or family?: three or more times per week How often do you get together with friends or relatives?: three or more times per week How often do you attend yazdanism or yazidism services?: 1-3 times per year Do you belong to any clubs or organized social groups?: yes Panel score (0-1 are the most socially isolated patients): 3 What type of physical activity do you participate in: walking and other Duration: > 90 minutes/day Frequency: daily Maci/Nondenominational: Methodist Special maci needs: No Seatbelt use: always Drive intox or ride w/intox otr van cdl truck driver: No Fire extinguisher in home: Yes Do you feel safe at home: Yes Do you feel safe in your relationship?: Yes Additional Social history: self-employed; applying for disability; has life insurance to cover his when he dies; worried about making enough money to support them up until his ; loving, caring, connected family celebrating his 35th wedding anniversary this summer ( in April, but alliance party this summer) Exam Const General: cooperative, in distress (has received IV fentanyl in addition to patch; in less pain than 09/07) moderate, anxious, disheveled and ill appearing Nutritional Appearance: obese Orientation: alert, awake, oriented to person and oriented to place [facility] Head: normocephalic and atraumatic Ears: hearing grossly normal bilaterally General nose exam: external nose normal Face and sinus: normal facial exam and dry mucous membranes Eyes Conjunctivae: conjunctivae normal Sclera: sclerae normal Neck Neck: no lymphadenopathy and no JVD Thyroid: thyroid normal Resp Effort & Inspection: normal respiratory effort and able to speak in complete sentences Auscultation: clear to auscultation bilaterally Cardio Jugular venous pressure: no JVD Rate: tachycardic Rhythm: regular rhythm Heart Sounds: S1 normal and S2 normal GI Inspection: edema and scar Palpation: firm and tender Auscultation: hypoactive bowel sounds General: bladder abnormal tender and other (urine in ileostomy bag karl colored; darker than usual) Back/Spine/Pelvis Thoracic/Lumbar Spine: thoraco-lumbar spasm and lumbar spinal tenderness Skin General skin exam: pallor Trauma: no lacerations or abrasions Wounds: no wounds Hair: normal Neuro General: alert, awake, moves all extremities and confused (mildly, can reorient rapidly; 2 daughters, son, , son-in-law all presen) Cognition: normal cognition (though a bit drifty due to recent iv fentanyl) Speech: speech normal Gait: other (in bed, too weak and in too much pain to stand at this time) Extrem General: edema (new in last 24 hrs) Laterality: bilateral, muscle atrophy and pedal edema Psych Appearance: disheveled Mental Status: mental status grossly normal Speech and Movement: delayed speech and slowed movement Mood: congruent mood (much less anxious than he was at home and at [facility] on my previous ) Affect: normal affect Attitude: cooperative Thought Process: impoverished and loose association Thought Content: normal Insight: insight good Judgment: judgment good Other: very clear that he doesn't want to go home until he can be sure that his pain is controlled cannot live with the degree of pain he has been experiencing Results Last Vital Signs Temp 97.9 F 09/09/18 11:48 Pulse 73 09/09/18 11:48 Resp 18 09/09/18 11:48 BP 114/70 09/09/18 11:48 Pulse Ox 99 09/09/18 11:48 Labs : 09/09/18 07:35 09/09/18 07:35 Laboratory Results - last 24 hr 09/08/18 09/08/18 09/09/18 16:15 16:15 07:35 WBC 12.70 H RBC 3.81 L Hgb 11.4 L Hct 35.2 L MCV 92.4 MCH 29.9 MCHC 32.4 RDW 12.9 Plt Count 381 MPV 9.4 Immature Gran % 0.2 Neutrophils % 83.5 Lymphocytes % 6.7 Monocytes % 9.2 Eosinophils % 0.2 Basophils % 0.2 Absolute Neutrophils 10.60 H Absolute Lymphocytes 0.85 L Absolute Monocytes 1.17 H Absolute Eosinophils 0.03 Absolute Basophils 0.03 Sodium 130 L 134 L Potassium 4.8 5.1 Chloride 93 L 96 L Carbon Dioxide 27.4 29.1 Anion Gap 9.6 8.9 BUN 24 H 32 H Creatinine 0.77 0.78 Estimated GFR/1.73 m2 >= 60.00 >= 60.00 Glucose 104 H 117 H Calcium 9.9 9.9 Magnesium 2.1 2.5 H Total Bilirubin 0.7 AST 13 L ALT 33 Alkaline Phosphatase 116 Total Protein 7.9 Albumin 3.3 L 09/09/18 07:35 WBC 12.30 H RBC 3.42 L Hgb 10.0 L Hct 31.6 L MCV 92.4 MCH 29.2 MCHC 31.6 L RDW 12.9 Plt Count 392 MPV 9.3 Immature Gran % 0.2 Neutrophils % 87.3 Lymphocytes % 2.6 Monocytes % 9.6 Eosinophils % 0.2 Basophils % 0.1 Absolute Neutrophils 10.74 H Absolute Lymphocytes 0.32 L Absolute Monocytes 1.18 H Absolute Eosinophils 0.02 Absolute Basophils 0.01 Sodium Potassium Chloride Carbon Dioxide Anion Gap BUN Creatinine Estimated GFR/1.73 m2 Glucose Calcium Magnesium Total Bilirubin AST ALT Alkaline Phosphatase Total Protein Albumin
[2018-09-09] MEDS: Ondansetron 4 MG/2 ML VIAL IVP (12:37)
[2018-09-09] MEDS: fentaNYL 100 MCG/2 ML VIAL 50 MCG IVP (12:38)
--- NOTE | 2018-09-09 12:47 | W.PALPGNOTE ---
Date of service: 09/09/18 Time of Service: 08:48 Assessment and Plan (1) Edema extremities: Current visit: Yes Status: Acute new problem do not fluid restrict given the heat wave predicted for this weekend keep him mobile massage legs for comfort (2) Nausea: Current visit: No Status: Acute much improved pain control made big difference (3) Metastatic urothelial carcinoma: Current visit: No Status: Inactive due to go down for radiation at 1 pm today would like to be discharged prior to that encouraged him to walk the hospital hallways to see how he feels moving and upright (4) Constipation due to opioid therapy: Current visit: No Status: Chronic big bm this am advised he needs to keep bowels moving some of his pain may have been due to stool in his colon pressing against the enlarged Retroperitoneal lymph nodes that are pressing against his spine leave as much room as possible in his pelvis (5) Cancer related pain: Current visit: No Status: Chronic has been severe approaching good control Lynsey Gutierrez, [employer] will send him home with 50 mcg patches to use with his 100 mcg patches expect he will need to get to 400 mcg before he is comfortable will start dilaudid instead of oxycodone for break through pain see if it is more effective (6) Palliative care patient: Current visit: No Status: Chronic will see Shar next week, too Subjective Patient reports: feels better, still having pain, pain is less and bowel movement Interval history since last seen: Shar slept m ore last night than he has in a week. Now on 250 mcg patches of fentanyl. Also received toradol. Wants to avoid dexamethasone or other steroids to allow immunotherapy to be maximally effective. Willing to try NSAIDs at home again, especially as he had large BM today that helped reduce his nausea and abdominal discomfort. Exam Const General: cooperative, no acute distress, disheveled and ill appearing Nutritional Appearance: obese Orientation: alert, awake and oriented x3 HENMT Head: normocephalic and atraumatic Ears: hearing grossly normal bilaterally General nose exam: external nose normal Face and sinus: normal facial exam and dry mucous membranes Eyes Conjunctivae: conjunctivae normal Sclera: sclerae normal Neck Neck: no lymphadenopathy and no JVD Chest Chest: normal inspection of the chest Resp Effort & Inspection: normal respiratory effort and able to speak in complete sentences Auscultation: clear to auscultation bilaterally Cardio Jugular venous pressure: no JVD Rate: regular rate (first time regular rate this week; pain control improved) Rhythm: regular rhythm Heart Sounds: S1 normal and S2 normal GI Inspection: edema and scar Palpation: soft Auscultation: normal bowel sounds General: bladder abnormal and other (urine in ileostomy bag karl colored; darker than usual) Back/Spine/Pelvis Thoracic/Lumbar Spine: lumbar spinal tenderness Skin Trauma: no lacerations or abrasions Wounds: no wounds Hair: normal Neuro General: alert, awake and moves all extremities Cognition: normal cognition Speech: speech normal Extrem General: edema, muscle atrophy and pedal edema Psych Mental Status: mental status grossly normal Speech and Movement: slowed movement Mood: congruent mood Affect: normal affect Attitude: cooperative Thought Content: normal Insight: insight good Judgment: judgment good Other: very clear that he doesn't want to go home until he can be sure that his pain is controlled cannot live with the degree of pain he has been experiencing Objective Objective Clinical Data: Abnormal lab results 09/08/18 09/08/18 09/09/18 Range/Units 16:15 16:15 07:35 WBC 12.70 H (4.4-10.8) k/cumm RBC 3.81 L (4.50-6.00) m/cumm Hgb 11.4 L (13.5-17.5) g/dL Hct 35.2 L (40.0-50.0) % MCHC (32.0-36.0) g/dL Absolute Neutrophils 10.60 H (1.2-6.7) k/cumm Absolute Lymphocytes 0.85 L (1.2-3.4) k/cumm Absolute Monocytes 1.17 H (0.11-0.7) k/cumm Sodium 130 L 134 L (136-145) mmol/L Chloride 93 L 96 L (98-107) mmol/L BUN 24 H 32 H (7-18) mg/dL Glucose 104 H 117 H (70-100) mg/dL Magnesium 2.5 H (1.8-2.4) mg/dL AST 13 L (15-37) U/L Albumin 3.3 L (3.4-5.0) g/dL 09/09/18 Range/Units 07:35 WBC 12.30 H (4.4-10.8) k/cumm RBC 3.42 L (4.50-6.00) m/cumm Hgb 10.0 L (13.5-17.5) g/dL Hct 31.6 L (40.0-50.0) % MCHC 31.6 L (32.0-36.0) g/dL Absolute Neutrophils 10.74 H (1.2-6.7) k/cumm Absolute Lymphocytes 0.32 L (1.2-3.4) k/cumm Absolute Monocytes 1.18 H (0.11-0.7) k/cumm Sodium (136-145) mmol/L Chloride (98-107) mmol/L BUN (7-18) mg/dL Glucose (70-100) mg/dL Magnesium (1.8-2.4) mg/dL AST (15-37) U/L Albumin (3.4-5.0) g/dL Vital Signs Temperature 97.9 F 09/09/18 11:48 Temperature Source Tympanic 09/09/18 11:48 Pulse 73 09/09/18 11:48 Pulse Rhythm Regular 09/09/18 07:35 Respiratory Rate 18 09/09/18 11:48 Respiratory Effort Non-Labored 09/09/18 07:35 Respiratory Depth Normal 09/09/18 07:35 Respiratory Pattern Normal 09/09/18 07:35 Blood Pressure 114/70 09/09/18 11:48 Pulse Oximetry 99 09/09/18 11:48 Oxygen Delivery Method Room Air 09/09/18 11:48 Oxygen Flow Rate 0 09/09/18 11:48 Pain Level 3 09/09/18 12:38 Comment 09/09/18 11:48 Intake & Output 09/08/18 09/09/18 09/09/18 23:59 11:59 23:59 Intake Total 320 / 320 1536.667 / 2711.667 1175 / 2711.667 Output Total 325 / 325 300 / 300 Balance -5 / -5 1236.667 / 2411.667 1175 / 2411.667 Weight 220 lb 3.869 oz Intake: IV 936.667 / 1871.667 935 / 1871.667 Oral 300 / 300 600 / 840 240 / 840 Output: Urine 325 / 325 300 / 300 Other: Urine Color Light Karl Light Karl Urine Appearance Cloudy Cloudy Urine Odor Strong None Comment EMPTIED UROSTOMY OF 125CC CLOUDY KARL URINE WHICH HAS A STRONG ODOR. Stool Size Large Stool Characteristics Formed Voiding Methods Ileal Conduit (Right) Laboratory Results WBC 12.30 k/cumm (4.4-10.8) H 09/09/18 07:35 RBC 3.42 m/cumm (4.50-6.00) L 09/09/18 07:35 Hgb 10.0 g/dL (13.5-17.5) L 09/09/18 07:35 Hct 31.6 % (40.0-50.0) L 09/09/18 07:35 MCV 92.4 fL (80-95) 09/09/18 07:35 MCH 29.2 pg (27.0-33.0) 09/09/18 07:35 MCHC 31.6 g/dL (32.0-36.0) L 09/09/18 07:35 RDW 12.9 % (11.8-14.1) 09/09/18 07:35 Plt Count 392 x1000/uL (130-400) 09/09/18 07:35 MPV 9.3 fL (8.0-11.0) 09/09/18 07:35 Immature Gran % 0.2 09/09/18 07:35 87.3 09/09/18 07:35 2.6 09/09/18 07:35 9.6 09/09/18 07:35 0.2 09/09/18 07:35 0.1 09/09/18 07:35 Absolute Neutrophils 10.74 k/cumm (1.2-6.7) H 09/09/18 07:35 Absolute Lymphocytes 0.32 k/cumm (1.2-3.4) L 09/09/18 07:35 Absolute Monocytes 1.18 k/cumm (0.11-0.7) H 09/09/18 07:35 Absolute Eosinophils 0.02 k/cumm (0.0-0.7) 09/09/18 07:35 Absolute Basophils 0.01 k/cumm (0.0-0.2) 09/09/18 07:35 Sodium 134 mmol/L (136-145) L 09/09/18 07:35 Potassium 5.1 mmol/L (3.5-5.1) 09/09/18 07:35 Chloride 96 mmol/L (98-107) L 09/09/18 07:35 Carbon Dioxide 29.1 mmol/L (21.0-32.0) 09/09/18 07:35 8.9 mmol/L (3-11) 09/09/18 07:35 BUN 32 mg/dL (7-18) H 09/09/18 07:35 0.78 mg/dL (0.70-1.30) 09/09/18 07:35 >= 60.00 (mL/min/1.73m2) 09/09/18 07:35 Glucose 117 mg/dL (70-100) H 09/09/18 07:35 Calcium 9.9 mg/dL (8.5-10.1) 09/09/18 07:35 Magnesium 2.5 mg/dL (1.8-2.4) H 09/09/18 07:35 0.7 mg/dL (0.2-1.0) 09/08/18 16:15 AST 13 U/L (15-37) L 09/08/18 16:15 ALT 33 U/L (12-78) 09/08/18 16:15 116 U/L (46-116) 09/08/18 16:15 7.9 g/dL (6.4-8.2) 09/08/18 16:15 3.3 g/dL (3.4-5.0) L 09/08/18 16:15
--- NOTE | 2018-09-09 15:43 | CHAPLAIN ---
I checked in with Shar and his this morning. He was expecting to be discharged later today to get to an appointment at [facility]. He was here for pain control, and he is said that currently his pain is better controlled. Shar's daughter Sybil is an [facility] pharmacist.
== END 2018-09-09 13:12 | disposition home or self-care (01) | DRG 948 ==
PROVIDERS: Nurse Practitioner; Admitting Provider Internal Medicine; Visit Provider Internal Medicine
DX: G89.3 Neoplasm related pain (acute) (chronic) (principal); C79.51 Secondary malignant neoplasm of bone; E87.1 Hypo-osmolality and hyponatremia; R11.0 Nausea; K59.03 Drug induced constipation; T40.2X5A Adverse effect of other opioids, initial encounter; Z79.891 Long term (current) use of opiate analgesic; Z51.5 Encounter for palliative care; I10 Essential (primary) hypertension
CPT/HCPCS: 36415; 80048; 80053; 99222; 99233; 99239; 99255; J1650; 83735; 85025; J1885; J2405; J3010; J3490